=== PATIENT | male | born 1970 | race Caucasian/White ===

== ENCOUNTER 2020-10-29 06:05 | Day surgery (SDC) | payer BC, SELFPAY ==
[~2020-10-29] VITALS: Ht 167.6 cm; Wt 92.5 kg
[2020-10-29] MEDS ORDERED: CEFAZOLIN SOD 1 GM in D5W 50 ML IV ONE (07:00)
[2020-10-29] MEDS ORDERED: ACETAMINOPHEN I.V. 1000 MG 100 ML IV ONE (07:19)
[2020-10-29] MEDS ORDERED: IOPAMIDOL 50 ML VIAL IV ONE (07:23)
[2020-10-29] MEDS ORDERED: MIDAZOLAM HCL 5 MG/5 ML VIAL IVP ONE (07:23)
[2020-10-29] MEDS ORDERED: DESFLURANE 15 MIN GAS INH ONE (07:23)
[2020-10-29] MEDS ORDERED: BUPIVACAINE /EPINEPHRINE/PF 0.25% 30 ML VIAL INJ ONE (07:23)
[2020-10-29] MEDS ORDERED: LR 1,000 ML IV.SOLN IV ONE (07:23)
[2020-10-29] MEDS ORDERED: NS IRRIG SOLN 1000 ML IR ONE (07:23)
[2020-10-29] MEDS ORDERED: LIDOCAINE 1% 10 MG/ML, 20 ML MDV INJ ONE (07:23)
[2020-10-29] MEDS ORDERED: ROCURONIUM BROMIDE 10 MG/ML (ZEMURON) IV ONE (07:23)
[2020-10-29] MEDS ORDERED: PROPOFOL 200MG/ 20ML VIAL (DIPRIVAN) IV ONE (07:23)
[2020-10-29] MEDS ORDERED: fentaNYL CITRATE 250 MCG/5 ML AMP IV ONE (07:23)
[2020-10-29] MEDS ORDERED: METOPROLOL TARTRATE 5 MG/5 ML AMPUL IVP ONE (07:23)
[2020-10-29] MEDS ORDERED: ONDANSETRON HCL 4 MG/2 ML VIAL IVP ONE (07:23)
[2020-10-29] MEDS ORDERED: SUGAMMADEX SODIUM 200 MG/2 ML VIAL IV ONE (07:23)
[2020-10-29] MEDS ORDERED: CEFAZOLIN 1 GM IVPB PREMIX 50 ML IV ONE (07:28)
[2020-10-29] MEDS ORDERED: LABETALOL 100 MG/ 20ML VIAL IVP PRN (08:30)
[2020-10-29] MEDS ORDERED: LR 1,000 ML IV SCH (08:30)
[2020-10-29] MEDS ORDERED: HYDROmorphone 1 MG/ML INJ. CARTRIDGE IVP PRN ×3 (08:30→09:15)
[2020-10-29] MEDS ORDERED: ONDANSETRON HCL 4 MG/2 ML VIAL IVP PRN (08:30)
[2020-10-29] MEDS ORDERED: MEPERIDINE HCL/PF 25 MG/ML DISP.SYRIN IVP PRN (08:30)
[2020-10-29] MEDS ORDERED: MIDAZOLAM HCL 2 MG/2 ML VIAL (VERSED) IVP PRN (08:30)
[2020-10-29] MEDS ORDERED: hydrALAZINE HCL 20 MG/ML VIAL IVP PRN (08:30)
[2020-10-29] MEDS ORDERED: METOCLOPRAMIDE HCL 10 MG/2 ML VIAL IVP PRN (08:30)
[2020-10-29] MEDS ORDERED: POLYMYXIN 500,000/BACIT.10,000 UNITS in NS IRR 1 L IR ONE (08:31)
[2020-10-29] MEDS ORDERED: HYDROcodone/ACETAMIN 5-325 MG TAB (NORCO/ VICODIN) PO PRN ×2 (09:15)
[2020-10-29] MEDS ORDERED: D5/0.45 NS 1,000 ML IV SCH (09:15)
[2020-10-29] MEDS: HYDROmorphone 2 MG/ML VIAL ONE ×4 (09:25→09:40)
[2020-10-29] MEDS ORDERED: INSULIN REGULAR, HUMAN 100 UNITS/ML, 10 ML VIAL (humuLIN R) ONE (09:25)
[2020-10-29 12:12] VITALS: BP_SYST 125
== END 2020-10-29 11:45 | disposition home or self-care (01) ==
LOC: SDS 06:05
PROVIDERS: ATTEND Colon & Rectal Surgery
DX: K81.1 Chronic cholecystitis (principal); K42.0 Umbilical hernia with obstruction, without gangrene; I10 Essential (primary) hypertension; E11.9 Type 2 diabetes mellitus without complications; E66.9 Obesity, unspecified; Z68.33 Body mass index [BMI] 33.0-33.9, adult; Z79.899 Other long term (current) drug therapy; Z20.822 Contact with and (suspected) exposure to COVID-19
CPT/HCPCS: 47563; 49587; 74300; 82948; 82962; 88302; 88304; C1727; C1758; J0131; J0690; J1170; J1815; Q9967; U0003; 76000; C9399; J2001; J2250; J2405; J2704; J3010; J3490; J7060; J7120